=== PATIENT | female | born 1970 | race American Indian/Alaskan Native ===

== ENCOUNTER 2020-07-10 10:53 | Emergency (ER) | payer SELFPAY ==
[~2020-07-10] VITALS: Ht 177.8 cm; Wt 90.7 kg
== END 2020-07-10 13:35 | disposition home or self-care (01) ==
LOC: ER 10:53
DX: S91.342A Puncture wound with foreign body, left foot, initial encounter (principal); F17.210 Nicotine dependence, cigarettes, uncomplicated; W45.8XXA Other foreign body or object entering through skin, initial encounter
CPT/HCPCS: 73630; 90471; 90714; 99283-25